=== PATIENT | female | born 1985 | race Caucasian/White ===

== ENCOUNTER 2020-01-02 18:28 | Day surgery (SDC) | payer BC ==
[2020-01-02 18:39] VITALS: PULSE 127
--- NOTE | 2020-01-02 19:06 | EDM.PDOC ---
ED HPI GENERAL MEDICAL PROBLEM - General Chief Complaint: Abdominal Pain Stated Complaint: ABDOMINAL PAIN Time Seen by Provider: 01/02/20 18:39 Source of Information: Reports: Patient, RN Notes Reviewed History Limitations: Reports: No Limitations - History of Present Illness INITIAL COMMENTS - FREE TEXT/NARRATIVE: Patient is a 34-year-old female who presents to the ED for the evaluation of her abdominal pain. Patient notes that since December 29, 2019, she has had some on and off right lower quadrant pain. She states that the pain is worse by movement, and with direct palpation of the right lower quadrant. She states that if she stands still or sits still this seems to decrease the pain. She states she is having trouble sleeping at night because she is having some issues finding comfortable positions. She states she will have to struggle to get into 1 position that is comfortable, and she will stay there all night. Patient notes she did have a good bowel movement as well today. She states she has had her gallbladder removed but still retains her appendix. She is not complaining of any other sick-like symptoms, nausea/vomiting/diarrhea, fever/ chills, chest pain/cough/shortness of breath. She does note a history of PCOS. She did take some Tylenol today, this did seem to help with the pain a little bit. Patient denies any chance of as she "has not had sex in quite some time". She believes her last menstrual period was around 6 weeks ago. Her primary care provider is Armen Bermudez. - Related Data Allergies Allergy/AdvReac Type Severity Reaction Status Date / Time azithromycin [From Zithromax] Allergy Abdominal Verified 01/09/19 14:33 Pain nickel Allergy Itching Verified 01/09/19 14:33 dust mites Allergy Cough Uncoded 01/09/19 14:33 Home Meds: Home Meds Ibuprofen [Motrin] 600 mg PO Q6H PRN #30 tablet 09/19/15 [Rx] LORazepam 1 tab PO DAILY PRN 06/21/16 [History] metFORMIN HCl [Metformin HCl ER] 1 tab PO DAILY 06/21/16 [History] Methylphenidate HCl [Ritalin] 10 mg PO DAILY 01/02/20 [History] OLANZapine [ZyPREXA] 15 mg PO DAILY 01/02/20 [History] buPROPion [Wellbutrin] 400 mg PO BID 01/02/20 [History] lamoTRIgine [LaMICtal] 200 mg PO DAILY 01/02/20 [History] Past Medical History HEENT History: Reports: Allergic Rhinitis, Sinusitis Other HEENT History: Severe Snoring Respiratory History: Reports: Sleep Apnea BEACH [employer] History: Reports: Polycystic Ovaries, , Spontaneous Psychiatric History: Reports: Anxiety, Bipolar, Depression Other Psychiatric History: under control takes effexor daily - Past Surgical History HEENT Surgical History: Reports: Adenoidectomy, Naso-Sinus Surgery, Oral Surgery GI Surgical History: Reports: Cholecystectomy Social & Family History - Tobacco Use Smoking Status *Q: Never Smoker - Caffeine Use Caffeine Use: Reports: None ED ROS GENERAL - Review of Systems Review Of Systems: Comprehensive ROS is negative, except as noted in HPI. ED EXAM, GI/ABD - Physical Exam Exam: See Below Exam Limited By: No Limitations General Appearance: Alert, WD/WN, No Apparent Distress Eyes: Bilateral: Normal Appearance Throat/Mouth: Normal Inspection, Normal Lips, Normal Teeth, Normal Gums, Normal Oropharynx, Normal Voice, No Airway Compromise Head: Atraumatic, Normocephalic Respiratory/Chest: No Respiratory Distress, Lungs Clear, Normal Breath Sounds, No Accessory Muscle Use, Chest Non-Tender Cardiovascular: Normal Peripheral Pulses, Regular Rate, Rhythm, No Murmur GI/Abdominal Exam: Normal Bowel Sounds, Soft, No Distention, No Mass, Tender ( RLQ, McBurney's point is positive.) (Female) Exam: Deferred Rectal (Female) Exam: Deferred Back Exam: Normal Inspection Extremities: Normal Inspection, Normal Capillary Refill Neurological: Alert, Oriented, Normal Cognition, No Motor/Sensory Deficits Psychiatric: Normal Affect, Normal Mood Skin Exam: Warm, Dry, Intact, Normal Color, No Rash Course - Vital Signs Last Recorded V/S: Last Vital Signs Temp 97.4 F 01/02/20 18:35 Pulse 127 H 01/02/20 18:35 Resp 16 01/02/20 18:35 BP 128/96 H 01/02/20 18:35 Pulse Ox 100 01/02/20 18:35 - Orders/Labs/Meds Orders: Active Orders 24 hr Category Date Time Status Notify Provider Consults [RC] ASDIRECTED Care 01/02/20 21:04 Ordered Peripheral IV Care [RC] . DIRECTED Care 01/02/20 18:58 Ordered Consult to Physician [CONS] Stat Cons 01/02/20 21:03 Ordered Abdomen Pelvis w Cont [CT] Stat Exams 01/02/20 18:57 Ordered Sodium Chloride 0.9% [Saline Flush] Med 01/02/20 18:57 Ordered 10 ml FLUSH ASDIRECTED PRN cefOXitin [Mefoxin in Dextrose,Iso-Osm 2 GM/50 ML] 2 gm Med 01/02/20 21:14 Ordered Premix Bag 1 bag IV ONETIME metroNIDAZOLE/Normal Saline [Flagyl 500 MG in NS 100 ML Med 01/02/20 21:14 Ordered ] 500 mg Premix Bag 1 bag IV ONETIME Peripheral IV Insertion Adult [OM.PC] Stat Oth 01/02/20 18:57 Ordered Medication Orders Cefoxitin Sodium 2 gm/ Premix 50 mls @ 100 mls/hr IV ONETIME ONE Stop: 01/02/20 21:43 Metronidazole 500 mg/ Premix 100 mls @ 100 mls/hr IV ONETIME ONE Stop: 01/02/20 22:13 Sodium Chloride (Saline Flush) 10 ml FLUSH ASDIRECTED PRN PRN Reason: Keep Vein Open Last Admin: 01/02/20 20:43 Dose: 10 ml Admin: 01/02/20 19:25 Dose: 10 ml Labs: Laboratory Tests 01/02/20 01/02/20 Range/Units 19:24 19:24 WBC 12.40 H (3.98-10.04) K/mm3 RBC 4.69 (3.98-5.22) M/mm3 Hgb 13.1 (11.2-15.7) gm/dl Hct 40.4 (34.1-44.9) % MCV 86.1 (79.4-94.8) fl MCH 27.9 (25.6-32.2) pg MCHC 32.4 (32.2-35.5) g/dl RDW Std Deviation 42.9 (36.4-46.3) fL Plt Count 449 H D (182-369) K/mm3 MPV 9.0 L (9.4-12.3) fl Neutrophils % (Manual) 76 H (40-60) % Band Neutrophils % 0 (0-10) % Lymphocytes % (Manual) 20 (20-40) % Atypical Lymphs % 0 % Monocytes % (Manual) 4 (2-10) % Eosinophils % (Manual) 0 L (0.7-5.8) % Basophils % (Manual) 0 L (0.1-1.2) Platelet Estimate Adequate RBC Morph Comment Normal Sodium 144 (136-145) mEq/L Potassium 3.4 L (3.5-5.1) mEq/L Chloride 105 (98-107) mEq/L Carbon Dioxide 26 (21-32) mEq/L Anion Gap 16.4 H (5-15) BUN 13 (7-18) mg/dL Creatinine 1.0 (0.55-1.02) mg/dL Est Cr Clr Drug Dosing 67.80 mL/min Estimated GFR (MDRD) > 60 (>60) mL/min BUN/Creatinine Ratio 13.0 L (14-18) Glucose 113 H (74-106) mg/dL Calcium 9.0 (8.5-10.1) mg/dL Total Bilirubin 0.3 (0.2-1.0) mg/dL AST 21 (15-37) U/L ALT 57 (14-59) U/L Alkaline Phosphatase 94 (46-116) U/L Total Protein 7.6 (6.4-8.2) g/dl Albumin 3.7 (3.4-5.0) g/dl Globulin 3.9 gm/dL Albumin/Globulin Ratio 1.0 (1-2) Meds: Medications Generic Name Dose Route Start Last Admin Trade Name Freq PRN Reason Stop Dose Admin Cefoxitin Sodium 2 gm/ Premix 50 mls @ 100 mls/hr 01/02/20 21:14 IV 01/02/20 21:43 ONETIME ONE Metronidazole 500 mg/ Premix 100 mls @ 100 mls/hr 01/02/20 21:14 IV 01/02/20 22:13 ONETIME ONE Sodium Chloride 10 ml 01/02/20 18:57 01/02/20 20:43 Saline Flush FLUSH 10 ml ASDIRECTED PRN Administration Keep Vein Open Discontinued Medications Generic Name Dose Route Start Last Admin Trade Name Freq PRN Reason Stop Dose Admin Diatrizoate Meglum/Diatrizoate Sod 90 ml 01/02/20 20:40 01/02/20 20:43 Gastrografin 37% PO 01/02/20 20:41 90 ml ONETIME ONE Administration Iopamidol 100 ml 01/02/20 20:40 01/02/20 20:43 Isovue-300 (61%) IVPUSH 01/02/20 20:41 100 ml ONETIME ONE Administration - Re-Assessments/Exams Free Text/Narrative Re-Assessment/Exam: 01/02/20 19:05 Patient presents to the ED for the evaluation of her lower abdominal pain. This very well could be due to her cystic ovary syndrome, but with McBurney point being positive, will go ahead with some labs and an abdomen pelvis CT with IV and oral contrast for further evaluation. Patient requests no opioid pain medications as this interacts with her psychiatric meds. 01/02/20 21:02 Patient's white blood cell count comes back mildly elevated with a slight left shift. Metabolic panel is essentially normal except for a mildly low potassium at 3.4. CT is done, and there was an area of concern on the right lower quadrant that looks like possible fat stranding. Fortunately Dr. Stanley was in the ER consulting on another patient for Dr. Mckeon, and had a chance to look at the CT and she would agree that the patient likely has appendicitis at this time. 01/02/20 21:06 Jamie deleon has read the CT as acute tip appendicitis. Please note that the tip of the appendix is severely distended and is unclear if there is associated underlying fluid collection related to perhaps a small phlegmon. Dr. Stanley did notice also this phlegmon. There is significant periappendiceal fat stranding, and the appendix measures up to 2 cm in its greatest diameter. Departure - Departure Time of Disposition: 21:10 Disposition: DC/Tfer to [facility] Condition: Good Clinical Impression: Appendicitis Qualifiers: Appendicitis type: acute appendicitis Acute appendicitis type: with localized peritonitis Appendicitis gangrene presence: without gangrene Appendicitis perforation presence: without perforation Appendicitis abscess presence: without abscess Qualified Code(s): K35.30 - Acute appendicitis with localized peritonitis, without perforation or gangrene - Discharge Information *PRESCRIPTION DRUG MONITORING PROGRAM REVIEWED*: No *COPY OF PRESCRIPTION DRUG MONITORING REPORT IN PATIENT EVIE: No Referrals: Armen Gonzalez MD [Primary Care Provider] - Forms: ED Department Discharge Sepsis Event Note - Evaluation Sepsis Screening Result: No Definite Risk - Focused Exam Vital Signs: Vital Signs Temp Pulse Resp BP Pulse Ox 01/02/20 18:35 97.4 F 127 H 16 128/96 H 100 Date Exam was Performed: 01/02/20 Time Exam was Performed: 21:15 - My Orders Last 24 Hours: My Active Orders 01/02/20 18:57 Abdomen Pelvis w Cont [CT] Stat Sodium Chloride 0.9% [Saline Flush] 10 ml FLUSH ASDIRECTED PRN Peripheral IV Insertion Adult [OM.PC] Stat 01/02/20 18:58 Peripheral IV Care [RC] . DIRECTED 01/02/20 21:03 Consult to Physician [CONS] Stat 01/02/20 21:04 Notify Provider Consults [RC] ASDIRECTED 01/02/20 21:14 cefOXitin [Mefoxin in Dextrose,Iso-Osm 2 GM/50 ML] 2 gm Premix Bag 1 bag IV ONETIME metroNIDAZOLE/Normal Saline [Flagyl 500 MG in NS 100 ML] 500 mg Premix Bag 1 bag IV ONETIME - Assessment/Plan Last 24 Hours: My Active Orders 01/02/20 18:57 Abdomen Pelvis w Cont [CT] Stat Sodium Chloride 0.9% [Saline Flush] 10 ml FLUSH ASDIRECTED PRN Peripheral IV Insertion Adult [OM.PC] Stat 01/02/20 18:58 Peripheral IV Care [RC] . DIRECTED 01/02/20 21:03 Consult to Physician [CONS] Stat 01/02/20 21:04 Notify Provider Consults [RC] ASDIRECTED 01/02/20 21:14 cefOXitin [Mefoxin in Dextrose,Iso-Osm 2 GM/50 ML] 2 gm Premix Bag 1 bag IV ONETIME metroNIDAZOLE/Normal Saline [Flagyl 500 MG in NS 100 ML] 500 mg Premix Bag 1 bag IV ONETIME
[2020-01-02] MEDS: Sodium Chloride 0.9% 10 ML Syringe FLUSH PRN ×2 (19:25→20:43)
[2020-01-02] MEDS ORDERED: Iopamidol 612 MG/ML 100 ML Bottle IVPUSH ONE (20:40)
[2020-01-02] MEDS ORDERED: Diatrizoate Meglumine/Diatrizoate Sodium 37% 120 ML Bottle PO ONE (20:40)
[2020-01-02] MEDS ORDERED: metroNIDAZOLE/Normal Saline 500 MG in Premix Bag 1 BAG IV ONE (21:14)
[2020-01-02] MEDS ORDERED: cefOXitin 2 GM in Premix Bag 1 BAG IV ONE (21:14)
--- NOTE | 2020-01-02 21:43 | PCM.HP.2 ---
H&P History of Present Illness - General Date of Service: 01/02/20 Admit Problem/Dx: Admission Diagnosis/Problem Admission Diagnosis/Problem Appendicitis Source of Information: Patient, Provider History Limitations: Reports: No Limitations - History of Present Illness Initial Comments - Free Text/Narative: Pt is a 34 y/o lady who presents with a 4 day history of RLQ abdominal pain. The pain has worsened somewhat over the last 4 days, and has persisted, so the patient presented for evaluation. She denies any stool changes. No hematochezia or melena. No n/v. Normal appetite - Related Data Allergies/Adverse Reactions: Allergies Allergy/AdvReac Type Severity Reaction Status Date / Time azithromycin [From Zithromax] Allergy Abdominal Verified 01/09/19 14:33 Pain nickel Allergy Itching Verified 01/09/19 14:33 dust mites Allergy Cough Uncoded 01/09/19 14:33 Home Medications: Home Meds Ibuprofen [Motrin] 600 mg PO Q6H PRN #30 tablet 09/19/15 [Rx] LORazepam 1 tab PO DAILY PRN 06/21/16 [History] metFORMIN HCl [Metformin HCl ER] 1 tab PO DAILY 06/21/16 [History] Methylphenidate HCl [Ritalin] 10 mg PO DAILY 01/02/20 [History] OLANZapine [ZyPREXA] 15 mg PO DAILY 01/02/20 [History] buPROPion [Wellbutrin] 400 mg PO BID 01/02/20 [History] lamoTRIgine [LaMICtal] 200 mg PO DAILY 01/02/20 [History] Past Medical History HEENT History: Reports: Allergic Rhinitis, Sinusitis Other HEENT History: Severe Snoring Respiratory History: Reports: Sleep Apnea 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: Reports: Polycystic Ovaries, , Spontaneous Other Neuro History: Had Headache Psychiatric History: Reports: Anxiety, Bipolar, Depression Other Psychiatric History: under control takes effexor daily Endocrine/Metabolic History: Reports: Other (See Below) Other Endocrine/Metabolic History: PCOS - Past Surgical History HEENT Surgical History: Reports: Adenoidectomy, Naso-Sinus Surgery, Oral Surgery GI Surgical History: Reports: Cholecystectomy Social & Family History - Family History Cardiac: Reports: High Cholesterol, Hypertension Respiratory: Reports: Sleep Apnea Psychiatric: Reports: Depression - Tobacco Use Smoking Status *Q: Never Smoker - Caffeine Use Caffeine Use: Reports: None H&P Review of Systems - Review of Systems: Review Of Systems: See Below General: Reports: No Symptoms HEENT: Reports: No Symptoms Pulmonary: Reports: No Symptoms Cardiovascular: Reports: No Symptoms Gastrointestinal: Reports: Abdominal Pain. Denies: Constipation, Diarrhea Genitourinary: Reports: No Symptoms Musculoskeletal: Reports: No Symptoms Skin: Reports: No Symptoms Neurological: Reports: No Symptoms Hematologic/Lymphatic: Reports: No Symptoms Exam - Exam Exam: See Below - Vital Signs Vital Signs: Last Vital Signs Temp 36.3 C 01/02/20 18:35 Pulse 127 H 01/02/20 18:35 Resp 16 01/02/20 18:35 BP 128/96 H 01/02/20 18:35 Pulse Ox 100 01/02/20 18:35 Weight: 99.79 kg - Exam Quality Assessment: No: Supplemental Oxygen General: Alert, Oriented HEENT: Conjunctiva Clear, EOMI Neck: Supple Lungs: Normal Respiratory Effort Cardiovascular: Regular Rate, Regular Rhythm GI/Abdominal Exam: Soft, Guarding (in RLQ), Rebound (in RLQ), Tender (in RLQ) Peripheral Pulses: 2+: Dorsalis Pedis (L), Dorsalis Pedis (R) Skin: Warm, Dry, Intact Neurological: Cranial Nerves Intact Neuro Extensive - Mental Status: Alert, Oriented x3, Normal Mood/Affect - Patient Data Lab Results Last 24 hrs: Laboratory Results - last 24 hr 01/02/20 01/02/20 Range/Units 19:24 19:24 WBC 12.40 H (3.98-10.04) K/mm3 RBC 4.69 (3.98-5.22) M/mm3 Hgb 13.1 (11.2-15.7) gm/dl Hct 40.4 (34.1-44.9) % MCV 86.1 (79.4-94.8) fl MCH 27.9 (25.6-32.2) pg MCHC 32.4 (32.2-35.5) g/dl RDW Std Deviation 42.9 (36.4-46.3) fL Plt Count 449 H D (182-369) K/mm3 MPV 9.0 L (9.4-12.3) fl Neutrophils % (Manual) 76 H (40-60) % Band Neutrophils % 0 (0-10) % Lymphocytes % (Manual) 20 (20-40) % Atypical Lymphs % 0 % Monocytes % (Manual) 4 (2-10) % Eosinophils % (Manual) 0 L (0.7-5.8) % Basophils % (Manual) 0 L (0.1-1.2) Platelet Estimate Adequate RBC Morph Comment Normal Sodium 144 (136-145) mEq/L Potassium 3.4 L (3.5-5.1) mEq/L Chloride 105 (98-107) mEq/L Carbon Dioxide 26 (21-32) mEq/L Anion Gap 16.4 H (5-15) BUN 13 (7-18) mg/dL Creatinine 1.0 (0.55-1.02) mg/dL Est Cr Clr Drug Dosing 67.80 mL/min Estimated GFR (MDRD) > 60 (>60) mL/min BUN/Creatinine Ratio 13.0 L (14-18) Glucose 113 H (74-106) mg/dL Calcium 9.0 (8.5-10.1) mg/dL Total Bilirubin 0.3 (0.2-1.0) mg/dL AST 21 (15-37) U/L ALT 57 (14-59) U/L Alkaline Phosphatase 94 (46-116) U/L Total Protein 7.6 (6.4-8.2) g/dl Albumin 3.7 (3.4-5.0) g/dl Globulin 3.9 gm/dL Albumin/Globulin Ratio 1.0 (1-2) Result Diagrams: 01/02/20 19:24 01/02/20 19:24 Sepsis Event Note - Evaluation Sepsis Screening Result: No Definite Risk - Focused Exam Vital Signs: Vital Signs Temp Pulse Resp BP Pulse Ox 01/02/20 18:35 36.3 C 127 H 16 128/96 H 100 Date Exam was Performed: 01/03/20 Time Exam was Performed: 00:01 *Q Meaningful Use (ADM) - VTE Risk Assess *Q Each Risk Factor Represents 1 Point: Minor Surgery Planned, Obesity ( BMI > 25 kg/m2) Total Score 1 Point Risk Factors: 2 - Problem List (1) Appendicitis SNOMED Code(s): 42176973 ICD Code: K37 - UNSPECIFIED APPENDICITIS Status: Acute Current Visit: Yes Qualifiers: Appendicitis type: acute appendicitis Acute appendicitis type: with localized peritonitis Appendicitis gangrene presence: without gangrene Appendicitis perforation presence: without perforation Appendicitis abscess presence: without abscess Qualified Code(s): K35.30 - Acute appendicitis with localized peritonitis, without perforation or gangrene Problem List Initiated/Reviewed/Updated: Yes Orders Last 24hrs: Active Orders 24 hr Category Date Time Status Admission Status [Patient Status] [ADT] Routine ADT 01/02/20 21:29 Active Notify Provider Consults [RC] ASDIRECTED Care 01/02/20 21:04 Active Peripheral IV Care [RC] . DIRECTED Care 01/02/20 18:58 Active Consult to Physician [CONS] Stat Cons 01/02/20 21:03 Active Abdomen Pelvis w Cont [CT] Stat Exams 01/02/20 18:57 Taken Cefuroxime [Zinacef] 1.5 gm Med 01/02/20 21:25 Active Sodium Chloride 0.9% [Normal Saline] 50 ml IV ONETIME Sodium Chloride 0.9% [Saline Flush] Med 01/02/20 18:57 Active 10 ml FLUSH ASDIRECTED PRN metroNIDAZOLE/Normal Saline [Flagyl 500 MG in NS 100 ML Med 01/02/20 21:14 Active ] 500 mg Premix Bag 1 bag IV ONETIME Peripheral IV Insertion Adult [OM.PC] Stat Oth 01/02/20 18:57 Ordered Schedule Procedure [COMM] Stat Oth 01/02/20 21:31 Ordered Medication Orders Metronidazole 500 mg/ Premix 100 mls @ 100 mls/hr IV ONETIME ONE Stop: 01/02/20 22:13 Last Admin: 01/02/20 21:29 Dose: 100 mls/hr Cefuroxime Sodium 1.5 gm/ (Sodium Chloride) 50 mls @ 100 mls/hr IV ONETIME ONE Stop: 01/02/20 21:54 Sodium Chloride (Saline Flush) 10 ml FLUSH ASDIRECTED PRN PRN Reason: Keep Vein Open Last Admin: 01/02/20 20:43 Dose: 10 ml Admin: 01/02/20 19:25 Dose: 10 ml Assessment/Plan Comment:: 34 y/o lady with acute appendicitis - plan for laparoscopic appendectomy, possible open - discussed risks of infection and bleeding, as well as staple line failure. Her written consent was obtained - NPO with IVF - IV cefuroxime 1.5g and metronidazole 500mg - will assess need for inpatient stay based on intraoperative findings Jesusita Addom-Anabel, MD General surgery - Mortality Measure Prognosis:: Good
[2020-01-02] MEDS ORDERED: Succinylcholine/Sod PF 100 MG/5 ML SYRINGE IV ONE (21:47)
[2020-01-02] MEDS ORDERED: Lactated Ringers 1,000 ML ONE ×2 (21:47→23:47)
[2020-01-02] MEDS ORDERED: Midazolam 1 MG/ML 2 ML SDV ONE (21:47)
[2020-01-02] MEDS ORDERED: Ondansetron 4 MG/2 ML SDV ONE (21:47)
[2020-01-02] MEDS ORDERED: Rocuronium 50 MG/5 ML Vial ONE (21:47)
[2020-01-02] MEDS ORDERED: Propofol 200 MG/20 ML SDV ONE ×2 (21:47→23:23)
[2020-01-02] MEDS ORDERED: fentaNYL 250 MCG/5 ML SDV ONE (21:47)
[2020-01-02] MEDS ORDERED: Lidocaine 1% 4 ML ONE (21:47)
[2020-01-02] MEDS ORDERED: Ketorolac 30 MG/ML SDV ONE (21:48)
[2020-01-02] MEDS ORDERED: Dexamethasone 4 MG/ML 5 ML MDV ONE (21:48)
[2020-01-02] MEDS ORDERED: Famotidine 20 MG/2 ML SDV IVPUSH ONE (22:36)
[2020-01-02] MEDS ORDERED: cefTRIAXone 2 GM AdvVial IV ONE (22:43)
[2020-01-02] MEDS ORDERED: Sodium Chloride 0.9% 100 ML ONE (22:44)
[2020-01-02] MEDS: Bupivacaine 0.5%/EPINEPHrine 1:200,000 50 ML MDV ONE ×2 (23:15→23:31)
[2020-01-02] MEDS: Lidocaine 1% with EPINEPHrine 1:100,000 20 ML MDV ONE ×2 (23:15→23:30)
[2020-01-02] MEDS ORDERED: HYDROmorphone 0.5 MG/0.5 ML Syringe IVPUSH PRN (23:31)
[2020-01-02] MEDS ORDERED: Ondansetron 4 MG/2 ML SDV IVPUSH PRN (23:31)
[2020-01-02] MEDS ORDERED: fentaNYL 100 MCG/2 ML SDV IVPUSH PRN (23:31)
--- NOTE | 2020-01-02 23:31 | PCM.PREANE ---
Preanesthetic Assessment - Procedure Proposed Procedure: Laparoscopic Appendectomy - Anesthesia/Transfusion/Family Hx Anesthesia History: Prior Anesthesia Without Reaction Family History of Anesthesia Reaction: No - Review of Systems General: No Symptoms Pulmonary: Other (CA with CPAP) Cardiovascular: No Symptoms Gastrointestinal: Abdominal Pain, Other (GERD) Neurological: No Symptoms Other: Reports: Depression, Anxiety (Bipolar disorder) - Physical Assessment NPO Status Date: 01/02/20 NPO Status Time: 18:00 Vital Signs: Last Vital Signs Temp 36.3 C 01/02/20 18:35 Pulse 127 H 01/02/20 18:35 Resp 16 01/02/20 18:35 BP 128/96 H 01/02/20 18:35 Pulse Ox 100 01/02/20 18:35 Height: 1.63 m Weight: 99.79 kg ASA Class: 2E Mental Status: Alert & Oriented x3 Airway Class: Mallampati = 2 Dentition: Reports: Normal Dentition Thyro-Mental Finger Breadths: 2 Mouth Opening Finger Breadths: 3 ROM/Head Extension: Full Lungs: Clear to Auscultation, Normal Respiratory Effort Cardiovascular: Regular Rate, Regular Rhythm - Lab Values: Laboratory Last Values WBC 12.40 K/mm3 (3.98-10.04) H 01/02/20 19:24 RBC 4.69 M/mm3 (3.98-5.22) 01/02/20 19:24 Hgb 13.1 gm/dl (11.2-15.7) 01/02/20 19:24 Hct 40.4 % (34.1-44.9) 01/02/20 19:24 MCV 86.1 fl (79.4-94.8) 01/02/20 19:24 MCH 27.9 pg (25.6-32.2) 01/02/20 19:24 MCHC 32.4 g/dl (32.2-35.5) 01/02/20 19:24 RDW Std Deviation 42.9 fL (36.4-46.3) 01/02/20 19:24 Plt Count 449 K/mm3 (182-369) H D 01/02/20 19:24 MPV 9.0 fl (9.4-12.3) L 01/02/20 19:24 Neutrophils % (Manual) 76 % (40-60) H 01/02/20 19:24 Band Neutrophils % 0 % (0-10) 01/02/20 19:24 Lymphocytes % (Manual) 20 % (20-40) 01/02/20 19:24 Atypical Lymphs % 0 % 01/02/20 19:24 Monocytes % (Manual) 4 % (2-10) 01/02/20 19:24 Eosinophils % (Manual) 0 % (0.7-5.8) L 01/02/20 19:24 Basophils % (Manual) 0 (0.1-1.2) L 01/02/20 19:24 Platelet Estimate Adequate 01/02/20 19:24 RBC Morph Comment Normal 01/02/20 19:24 Sodium 144 mEq/L (136-145) 01/02/20 19:24 Potassium 3.4 mEq/L (3.5-5.1) L 01/02/20 19:24 Chloride 105 mEq/L (98-107) 01/02/20 19:24 Carbon Dioxide 26 mEq/L (21-32) 01/02/20 19:24 Anion Gap 16.4 (5-15) H 01/02/20 19:24 BUN 13 mg/dL (7-18) 01/02/20 19:24 Creatinine 1.0 mg/dL (0.55-1.02) 01/02/20 19:24 Est Cr Clr Drug Dosing 67.80 mL/min 01/02/20 19:24 Estimated GFR (MDRD) > 60 mL/min (>60) 01/02/20 19:24 BUN/Creatinine Ratio 13.0 (14-18) L 01/02/20 19:24 Glucose 113 mg/dL (74-106) H 01/02/20 19:24 Calcium 9.0 mg/dL (8.5-10.1) 01/02/20 19:24 Total Bilirubin 0.3 mg/dL (0.2-1.0) 01/02/20 19:24 AST 21 U/L (15-37) 01/02/20 19:24 ALT 57 U/L (14-59) 01/02/20 19:24 Alkaline Phosphatase 94 U/L (46-116) 01/02/20 19:24 Total Protein 7.6 g/dl (6.4-8.2) 01/02/20 19:24 Albumin 3.7 g/dl (3.4-5.0) 01/02/20 19:24 Globulin 3.9 gm/dL 01/02/20 19:24 Albumin/Globulin Ratio 1.0 (1-2) 01/02/20 19:24 Urine HCG, Qual Negative (NEGATIVE) 01/02/20 22:05 - Allergies Allergies/Adverse Reactions: Allergies Allergy/AdvReac Type Severity Reaction Status Date / Time azithromycin [From Zithromax] Allergy Abdominal Verified 01/09/19 14:33 Pain nickel Allergy Itching Verified 01/09/19 14:33 dust mites Allergy Cough Uncoded 01/09/19 14:33 - Acknowledgements Anesthesia Type Planned: General Anesthesia Pt an Appropriate Candidate for the Planned Anesthesia: Yes Alternatives and Risks of Anesthesia Discussed w Pt/Guardian: Yes Pt/Guardian Understands and Agrees with Anesthesia Plan: Yes PreAnesthesia Questionnaire HEENT History: Reports: Allergic Rhinitis, Sinusitis Other HEENT History: Severe Snoring Respiratory History: Reports: Sleep Apnea 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: Reports: Polycystic Ovaries, , Spontaneous Other Neuro History: Had Headache Psychiatric History: Reports: Anxiety, Bipolar, Depression Other Psychiatric History: under control takes effexor daily Endocrine/Metabolic History: Reports: Other (See Below) Other Endocrine/Metabolic History: PCOS - Past Surgical History HEENT Surgical History: Reports: Adenoidectomy, Naso-Sinus Surgery, Oral Surgery GI Surgical History: Reports: Cholecystectomy - SUBSTANCE USE Smoking Status *Q: Never Smoker - HOME MEDS Home Medications: Home Meds Ibuprofen [Motrin] 600 mg PO Q6H PRN #30 tablet 09/19/15 [Rx] LORazepam 1 tab PO DAILY PRN 06/21/16 [History] metFORMIN HCl [Metformin HCl ER] 1 tab PO DAILY 06/21/16 [History] Methylphenidate HCl [Ritalin] 10 mg PO DAILY 01/02/20 [History] OLANZapine [ZyPREXA] 15 mg PO DAILY 01/02/20 [History] buPROPion [Wellbutrin] 400 mg PO BID 01/02/20 [History] lamoTRIgine [LaMICtal] 200 mg PO DAILY 01/02/20 [History] - CURRENT (IN HOUSE) MEDS Current Meds: Current Medications Sodium Chloride (Saline Flush) 10 ml FLUSH ASDIRECTED PRN PRN Reason: Keep Vein Open Last Admin: 01/02/20 20:43 Dose: 10 ml Discontinued Medications Bupivacaine HCl/Epinephrine Bitart (Marcaine 0.5%/Epinephrine 1:200,000) Confirm Administered Dose 50 ml .ROUTE .STK-MED ONE Stop: 01/02/20 21:49 Ceftriaxone Sodium (Rocephin) Confirm Administered Dose 2 gm IV .STK-MED ONE Stop: 01/02/20 22:44 Dexamethasone (Dexamethasone) Confirm Administered Dose 20 mg .ROUTE .STK-MED ONE Stop: 01/02/20 21:49 Diatrizoate Meglum/Diatrizoate Sod (Gastrografin 37%) 90 ml PO ONETIME ONE Stop: 01/02/20 20:41 Last Admin: 01/02/20 20:43 Dose: 90 ml Famotidine (Pepcid) 20 mg IVPUSH ONETIME ONE Stop: 01/02/20 22:37 Fentanyl (Sublimaze) Confirm Administered Dose 250 mcg .ROUTE .STK-MED ONE Stop: 01/02/20 21:48 Cefoxitin Sodium 2 gm/ Premix 50 mls @ 100 mls/hr IV ONETIME ONE Stop: 01/02/20 21:43 Metronidazole 500 mg/ Premix 100 mls @ 100 mls/hr IV ONETIME ONE Stop: 01/02/20 22:13 Last Admin: 01/02/20 21:29 Dose: 100 mls/hr Cefuroxime Sodium 1.5 gm/ (Sodium Chloride) 50 mls @ 100 mls/hr IV ONETIME ONE Stop: 01/02/20 21:54 Lidocaine HCl (Xylocaine-Mpf 1%) Confirm Administered Dose 4 mls @ as directed .ROUTE .STK-MED ONE Stop: 01/02/20 21:48 Lactated Ringer's (Ringers, Lactated) Confirm Administered Dose 1,000 mls @ as directed .ROUTE .STK-MED ONE Stop: 01/02/20 21:48 Sodium Chloride (Normal Saline) Confirm Administered Dose 100 mls @ as directed .ROUTE .STK-MED ONE Stop: 01/02/20 22:45 Iopamidol (Isovue-300 (61%)) 100 ml IVPUSH ONETIME ONE Stop: 01/02/20 20:41 Last Admin: 01/02/20 20:43 Dose: 100 ml Ketorolac Tromethamine (Toradol) Confirm Administered Dose 30 mg .ROUTE .STK- MED ONE Stop: 01/02/20 21:49 Lidocaine/Epinephrine (Xylocaine 1% With Epinephrine 1:100,000) Confirm Administered Dose 40 ml .ROUTE .STK-MED ONE Stop: 01/02/20 21:49 Midazolam HCl (Versed 1 Mg/Ml) Confirm Administered Dose 2 mg .ROUTE .STK-MED ONE Stop: 01/02/20 21:48 Ondansetron HCl (Zofran) Confirm Administered Dose 4 mg .ROUTE .STK-MED ONE Stop: 01/02/20 21:48 Propofol (Diprivan 20 Ml) Confirm Administered Dose 400 mg .ROUTE .STK-MED ONE Stop: 01/02/20 21:48 Propofol (Diprivan 20 Ml) Confirm Administered Dose 200 mg .ROUTE .STK-MED ONE Stop: 01/02/20 23:24 Rocuronium [place] (Zemuron) Confirm Administered Dose 50 mg .ROUTE .STK-MED ONE Stop: 01/02/20 21:48
--- NOTE | 2020-01-03 00:07 | PCM.OPNOTE ---
- General Post-Op/Procedure Note Date of Surgery/Procedure: 01/03/20 Operative Procedure(s): laparoscopic appendectomy Findings: Appendicitis with localized abscess Pre Op Diagnosis: Acute appendicitis Post-Op Diagnosis: Same Anesthesia Technique: General ET Tube Primary Surgeon: Jesusita Harris Anesthesia Provider: Darline Pineda Pathology: appendix Fluid Replacement, Intraop: 1,000 Output, Urine Amount: 0 EBL in mLs: 10 Complications: None apparent Condition: Good
--- NOTE | 2020-01-03 00:13 | PCM.PRNOTE ---
- Free Text/Narrative Note: Operative Report Date of surgery: January 02, 2020 Preoperative diagnosis: acute appendicitis. Postoperative diagnosis: same Procedure performed: laparoscopic appendectomy Surgeon: Dr. Jesusita Harris Anesthesia: General [place] Judge: Jovani Santiago CRNA Estimated blood loss: 10 mL IV fluids: 1000 mL Urine output: 0 mL, patient voided prior to OR Drains and lines: None Findings: Appendicitis with localized abscess Pathology: Appendix Indications for procedure: The patient is a 34-year-old lady who presented to the emergency department with a 4-day history of right lower quadrant abdominal pain. She underwent evaluation and had an elevated white blood cell count as well as CT findings consistent with appendicitis. She was consented for laparoscopic appendectomy. We discussed risks of bleeding, infection and staple line failure. A written consent was obtained. Description of procedure: The patient was taken back to the operating room and placed in supine position on the operating table. SCD boots were in place and functional prior to the start of the procedure. Preoperative antibiotics were administered : Ceftriaxone 2 g IV and metronidazole 500 mg IV. The patient had successful induction of general anesthesia and was intubated without difficulty. Pt was then prepped and draped in standard surgical fashion and a timeout was performed. We began by making a 15 mm incision in the infraumbilical skin and deepened down to level of the fascia which was then grasped and incised sharply. We entered the peritoneum and then placed stay sutures of 0 Vicryl on the fascial edges. A 12 mm Lyons port was then placed into the umbilicus and the balloon was inflated. The abdomen was insufflated to 15 mmHg a 5 mm camera was inserted. There was no evidence of any injury created from entry into the abdomen. A TA P block was performed using mixed 1% lidocaine with epinephrine and 0.5% bupivacaine with epinephrine . We then proceeded to place a 5 mm port under direct visualization in the suprapubic midline and an additional 5mm port in the left lower quadrant. The patient was then positioned in Trendelenburg with right side elevated and we proceeded to mobilize the appendix. The appendix was adherent to the cecum and inflamed. The appendix was then grasped and with blunt dissection was brought into the surgical field. The dissection of the tip of the appendix away from the cecum opened the small contained abscess. A Ray-Robert was inserted into the abdomen to warehouse picker the spilled purulence and blood. The mesoappendix dissected from the appendix. The appendix was then taken with a tissue staple load. The mesoappendix was then taken with a vascular staple load. The specimen was in place in the Endo Catch bag. We then inspected and blotted up any blood in the area. The Endo Catch bag and Ray-Robert were then removed from the abdomen. There was no active bleeding at the end of this case. The abdomen was then desufflated and the umbilical fascia closed with 0 Vicryl sutures and the stay sutures were tied, effectively closing the umbilical port site. The skin was then reapproximated at all port sites using a 4-0 Monocryl subcutaneous stitch and covered with Dermabond surgical glue. The patient tolerated the procedure. She was extubated and transported to the PACU in stable condition. All sponge and needle counts were correct. I was present and scrubbed for the entirety of the procedure. Jesusita Harris MD General Surgery
--- NOTE | 2020-01-03 00:30 | PCM.POSTAN ---
POST ANESTHESIA ASSESSMENT - MENTAL STATUS Mental Status: Other (Drowsy) - VITAL SIGNS Vital Signs: Last Vital Signs Temp 36.3 C 01/02/20 18:35 Pulse 127 H 01/02/20 18:35 Resp 16 01/02/20 18:35 BP 128/96 H 01/02/20 18:35 Pulse Ox 100 01/02/20 18:35 97.3 155/102 113 28 98% - RESPIRATORY Respiratory Status: Respiratory Rate WNL, Airway Patent, O2 Saturation Stable, Supplemental Oxygen - CARDIOVASCULAR CV Status: Elevated Pulse Rate, Elevated Blood Pressure - GASTROINTESTINAL GI Status: No Symptoms - PAIN Pain Score: 0 - POST OP HYDRATION Hydration Status: Adequate & Stable
--- NOTE | 2020-01-03 01:00 | PCM48HPAN ---
Post Anesthesia Note - EVALUATION WITHIN 48HRS OF ANESTHETIC Vital Signs in Normal Range: Yes Patient Participated in Evaluation: Yes Respiratory Function Stable: Yes Airway Patent: Yes Cardiovascular Function Stable: Yes Hydration Status Stable: Yes Pain Control Satisfactory: Yes Nausea and Vomiting Control Satisfactory: Yes Mental Status Recovered: Yes Vital Signs: Last Vital Signs Temp 36.3 C 01/03/20 00:21 Pulse 127 H 01/02/20 18:35 Resp 22 H 01/03/20 00:45 BP 152/96 H 01/03/20 00:45 Pulse Ox 97 01/03/20 00:52
[2020-01-03 01:36] VITALS: BP 146/95
--- NOTE | 2020-01-03 10:11 | CT ---
CT abdomen and pelvis Technique: Multiple axial sections were obtained from above the dome of the diaphragm inferiorly through the pubic symphysis. Intravenous and oral contrast was utilized. Delayed images were obtained through the bladder. Comparison: Prior CT abdomen and pelvis exam of 06/21/16. Findings: Visualized lung bases show nothing acute. Slight fatty infiltrations is seen within the liver. No focal abnormality is appreciated within the liver. Surgical clips are noted from prior cholecystectomy. Spleen appears within normal limits. Adrenal glands show no nodule. Kidneys show symmetric contrast enhancement. Small low density finding is noted within the mid right kidney measuring about 8 mm most likely representing a small cyst. This is felt to be present on previous exam. No additional abnormalities are identified within the kidneys. Pancreas appears within normal limits. Aorta shows no aneurysm. No retroperitoneal adenopathy is appreciated. Inflammatory changes seen surrounding the appendix. Small low density finding noted within the right lower quadrant measuring 2.1 cm. This is either due to a dilated distal end of the appendix or could represent a small periappendiceal abscess. No additional pelvic abnormality is appreciated. No free fluid is seen. Delayed images shows contrast within the bladder. Bone window settings were reviewed which show no acute osseous finding. Very minimal fat-containing umbilical hernia is noted. Impression: 1. Findings compatible with appendicitis. 2. Small fluid-filled collection either representing dilated tip of the appendix or small periappendiceal abscess. This finding measures about 2.1 cm. 3. Other findings as noted above believed to be nonacute. Diagnostic code #5 This report was dictated in MDT I agree with preliminary report from [facility], finalized on 01/02/20, 10:06 PM Central Daylight Time
== END 2020-01-03 01:33 | disposition home or self-care (01) ==
LOC: JD.ED 18:28 → JD.SDS 21:31
PROVIDERS: ATTEND Surgery
DX: K35.33 Acute appendicitis with perforation, localized peritonitis, and gangrene, with abscess (principal); F41.9 Anxiety disorder, unspecified; F32.9 Major depressive disorder, single episode, unspecified; Z88.1 Allergy status to other antibiotic agents; Z91.048 Other nonmedicinal substance allergy status; Z79.899 Other long term (current) drug therapy
CPT/HCPCS: 36415; 44970; 74177; 80053; 81025; 85007; 85027; 96374; 99285; J0330; J1100; J1885; J2001; J2250; J2405; J2704; J2710; J3010; J3490; J7120; Q9963; Q9967; 00840

== ENCOUNTER 2020-01-26 17:06 | Emergency (ER) | payer BC ==
[2020-01-26 17:15] VITALS: BP 127/82; PULSE 95
[2020-01-26] MEDS ORDERED: Sodium Chloride 0.9% 10 ML Syringe FLUSH PRN (17:30)
--- NOTE | 2020-01-26 17:38 | EDM.PDOC ---
ED HPI GENERAL MEDICAL PROBLEM - General Chief Complaint: Abdominal Pain Stated Complaint: APPENDECTOMY 3 WEEKS AGO NOW HAVING PAIN Time Seen by Provider: 01/26/20 17:15 Source of Information: Reports: Patient, RN Notes Reviewed History Limitations: Reports: No Limitations - History of Present Illness INITIAL COMMENTS - FREE TEXT/NARRATIVE: Patient is a 34-year-old female who presents to the ED for evaluation of right lower quadrant pain. Patient states that she had an appendectomy performed by Dr. Stanley 3 weeks ago, and everything went well. Patient states that she developed this right lower quadrant abdominal pain this morning, states is been present all day. She states that it feels like a dull deep ache that comes and goes, when she sits down it seems to feel better, when she walks at all it seems to worsen the pain. She states she has not taken any pain medications at home for this. She states that her last bowel movement for her that was normal was yesterday. Patient denies any nausea/vomiting/diarrhea, fever/chills, cough /shortness of breath, chest pain, dysuria/frequency/urgency. Patient denies any chance of history. Patient states that her last menstrual period was around 2 months ago, states that she has PCOS, and that her periods are not regular. Her primary care provider is Armen Bermudez. Right Lower Abdominal Pain Score (Numeric/FACES): 4 - Related Data Allergies Allergy/AdvReac Type Severity Reaction Status Date / Time azithromycin [From Zithromax] Allergy Abdominal Verified 01/26/20 17:15 Pain nickel Allergy Itching Verified 01/26/20 17:15 dust mites Allergy Cough Uncoded 01/09/19 14:33 Home Meds: Home Meds Ibuprofen [Motrin] 600 mg PO Q6H PRN #30 tablet 09/19/15 [Rx] LORazepam 1 tab PO DAILY PRN 06/21/16 [History] metFORMIN HCl [Metformin HCl ER] 1 tab PO DAILY 06/21/16 [History] Methylphenidate HCl [Ritalin] 10 mg PO DAILY 01/02/20 [History] OLANZapine [ZyPREXA] 15 mg PO DAILY 01/02/20 [History] buPROPion [Wellbutrin] 400 mg PO BID 01/02/20 [History] lamoTRIgine [LaMICtal] 200 mg PO DAILY 01/02/20 [History] Past Medical History HEENT History: Reports: Allergic Rhinitis, Sinusitis Other HEENT History: Severe Snoring Respiratory History: Reports: Sleep Apnea 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: Reports: Polycystic Ovaries, , Spontaneous Other Neuro History: Had Headache Psychiatric History: Reports: Anxiety, Bipolar, Depression Other Psychiatric History: under control takes effexor daily Endocrine/Metabolic History: Reports: Obesity/BMI 30+ - Past Surgical History HEENT Surgical History: Reports: Adenoidectomy, Naso-Sinus Surgery, Oral Surgery GI Surgical History: Reports: Cholecystectomy Social & Family History - Family History Family Medical History: Noncontributory Cardiac: Reports: High Cholesterol, Hypertension Respiratory: Reports: Sleep Apnea Psychiatric: Reports: Depression - Tobacco Use Smoking Status *Q: Never Smoker - Caffeine Use Caffeine Use: Reports: None - Recreational Drug Use Recreational Drug Use: No ED ROS GENERAL - Review of Systems Review Of Systems: Comprehensive ROS is negative, except as noted in HPI. ED EXAM, GI/ABD - Physical Exam Exam: See Below Exam Limited By: Intoxication General Appearance: Alert, WD/WN, No Apparent Distress Eyes: Bilateral: Normal Appearance Throat/Mouth: Normal Inspection, Normal Lips, Normal Teeth, Normal Gums, Normal Oropharynx, Normal Voice, No Airway Compromise Head: Atraumatic, Normocephalic Neck: Normal Inspection Respiratory/Chest: No Respiratory Distress, Lungs Clear, Normal Breath Sounds, No Accessory Muscle Use, Chest Non-Tender Cardiovascular: Normal Peripheral Pulses, Regular Rate, Rhythm, No Murmur GI/Abdominal Exam: Normal Bowel Sounds, Soft, No Distention, No Mass, Tender ( RLQ with deep palpation) Extremities: Normal Inspection, Normal Capillary Refill Neurological: Alert, Oriented, Normal Cognition, No Motor/Sensory Deficits Psychiatric: Normal Affect, Normal Mood Skin Exam: Warm, Dry, Intact, Normal Color, No Rash Course - Vital Signs Last Recorded V/S: Last Vital Signs Temp 97.4 F 01/26/20 17:13 Pulse 95 01/26/20 17:13 Resp 16 01/26/20 17:13 BP 127/82 01/26/20 17:13 Pulse Ox 98 01/26/20 17:13 - Orders/Labs/Meds Orders: Active Orders 24 hr Category Date Time Status Peripheral IV Care [RC] . DIRECTED Care 01/26/20 17:30 Ordered Sodium Chloride 0.9% [Saline Flush] Med 01/26/20 17:30 Ordered 10 ml FLUSH ASDIRECTED PRN Peripheral IV Insertion Adult [OM.PC] Stat Oth 01/26/20 17:30 Ordered Medication Orders Sodium Chloride (Saline Flush) 10 ml FLUSH ASDIRECTED PRN PRN Reason: Keep Vein Open Last Admin: 01/26/20 17:34 Dose: 10 ml Labs: Laboratory Tests 01/26/20 01/26/20 Range/Units 17:35 17:35 WBC 8.79 (3.98-10.04) K/mm3 RBC 4.63 (3.98-5.22) M/mm3 Hgb 13.1 (11.2-15.7) gm/dl Hct 40.9 (34.1-44.9) % MCV 88.3 (79.4-94.8) fl MCH 28.3 (25.6-32.2) pg MCHC 32.0 L (32.2-35.5) g/dl RDW Std Deviation 48.0 H (36.4-46.3) fL Plt Count 422 H (182-369) K/mm3 MPV 9.1 L (9.4-12.3) fl Neut % (Auto) 62.2 (34.0-71.1) % Lymph % (Auto) 28.9 (19.3-51.7) % [place] % (Auto) 7.2 (4.7-12.5) % Eos % (Auto) 1.4 (0.7-5.8) Baso % (Auto) 0.2 (0.1-1.2) % Neut # (Auto) 5.47 (1.56-6.13) K/mm3 Lymph # (Auto) 2.54 (1.18-3.74) K/mm3 [place] # (Auto) 0.63 H (0.24-0.36) K/mm3 Eos # (Auto) 0.12 (0.04-0.36) K/mm3 Baso # (Auto) 0.02 (0.01-0.08) K/mm3 Sodium 143 (136-145) mEq/L Potassium 4.0 (3.5-5.1) mEq/L Chloride 104 (98-107) mEq/L Carbon Dioxide 28 (21-32) mEq/L Anion Gap 15.0 (5-15) BUN 11 (7-18) mg/dL Creatinine 1.0 (0.55-1.02) mg/dL Est Cr Clr Drug Dosing 67.80 mL/min Estimated GFR (MDRD) > 60 (>60) mL/min BUN/Creatinine Ratio 11.0 L (14-18) Glucose 85 (74-106) mg/dL Calcium 9.4 (8.5-10.1) mg/dL Total Bilirubin 0.3 (0.2-1.0) mg/dL AST 16 (15-37) U/L ALT 34 (14-59) U/L Alkaline Phosphatase 91 (46-116) U/L Total Protein 7.9 (6.4-8.2) g/dl Albumin 4.2 (3.4-5.0) g/dl Globulin 3.7 gm/dL Albumin/Globulin Ratio 1.1 (1-2) Meds: Medications Generic Name Dose Route Start Last Admin Trade Name Freq PRN Reason Stop Dose Admin Sodium Chloride 10 ml 01/26/20 17:30 01/26/20 17:34 Saline Flush FLUSH 10 ml ASDIRECTED PRN Administration Keep Vein Open - Re-Assessments/Exams Free Text/Narrative Re-Assessment/Exam: 01/26/20 17:38 Patient presents to the ED for evaluation of her right lower quadrant pain. Suspect constipation in nature, however will get some basic labs and abdomen x- ray for evaluation. 01/26/20 18:03 Abdomen x-ray demonstrates quite a bit of stool within the right side of her colon. Pending normal labs; it is likely that her pain could be due to constipation in nature, versus a complication from her PCOS. 01/26/20 18:15 Carlos Eduardo evaluation demonstrates no sign of a bacterial infection or metabolic abnormality. Again likely that this is due to constipation in nature. Patient will be given a bottle of mag citrate and discharged home at this time. We will have her follow-up with Dr. Stanley, if the pain lingers after she has had a good couple bowel movements. Departure - Departure Time of Disposition: 18:16 Disposition: Home, Self-Care 01 Condition: Good Clinical Impression: Constipation Qualifiers: Constipation type: other constipation type Qualified Code(s): K59.09 - Other constipation - Discharge Information *PRESCRIPTION DRUG MONITORING PROGRAM REVIEWED*: No *COPY OF PRESCRIPTION DRUG MONITORING REPORT IN PATIENT EVIE: No Instructions: Preventing Constipation After Surgery Referrals: Armen Gonzalez MD [Primary Care Provider] - Forms: ED Department Discharge Additional Instructions: You were evaluated in the ER today regarding your right lower quadrant abdominal pain. Laboratory evaluation was taken at today's visit, and demonstrates no sign of a bacterial infection or other metabolic derangements. Your x-ray is suggestive of constipation as there is quite a bit of stool in the right side of your colon, exactly where your pain is. You have been given a bottle of magnesium citrate, to take home with you. Please drink one half bottle wait a few hours if you do not have a rather large bowel movement, repeat with the last half bottle. You may try Tylenol/ibuprofen for pain relief, every 6 hours as needed. Recommend you follow-up with Dr. Stanley tomorrow, if the pain is not getting much better after you have had a few good bowel movements. You could also be having some pain from PCOS, if the surgeon deems it not a complication from surgery, recommend you follow-up with ROLL OR TAPE EDGE MACHINE OPERATOR as well for further management. Please return to the ER at any time if symptoms change or worsen. Sepsis Event Note - Evaluation Sepsis Screening Result: No Definite Risk - Focused Exam Vital Signs: Vital Signs Temp Pulse Resp BP Pulse Ox 01/26/20 17:13 97.4 F 95 16 127/82 98 Date Exam was Performed: 01/26/20 Time Exam was Performed: 18:15 - My Orders Last 24 Hours: My Active Orders 01/26/20 17:30 Peripheral IV Care [RC] . DIRECTED Sodium Chloride 0.9% [Saline Flush] 10 ml FLUSH ASDIRECTED PRN Peripheral IV Insertion Adult [OM.PC] Stat - Assessment/Plan Last 24 Hours: My Active Orders 01/26/20 17:30 Peripheral IV Care [RC] . DIRECTED Sodium Chloride 0.9% [Saline Flush] 10 ml FLUSH ASDIRECTED PRN Peripheral IV Insertion Adult [OM.PC] Stat
--- NOTE | 2020-01-26 18:03 | CR ---
Abdomen: Supine view of the abdomen was obtained. Comparison: No previous abdominal x-ray. Surgical clips are seen from prior cholecystectomy. Bowel gas pattern is normal. Several calcifications are noted within the left pelvis which are compatible with phleboliths. No discrete soft tissue abnormality is appreciated. Impression: 1. Nothing acute is appreciated on supine abdominal x-ray. Diagnostic code #2 This report was dictated in MDT
[2020-01-26] MEDS ORDERED: Magnesium Citrate Solution 296 ML Bottle PO ONE (18:16)
== END 2020-01-26 19:00 | disposition home or self-care (01) ==
LOC: JD.ED 17:06
DX: K59.09 Other constipation (principal); Z88.1 Allergy status to other antibiotic agents; Z91.09 Other allergy status, other than to drugs and biological substances; F31.9 Bipolar disorder, unspecified; D41.9 Neoplasm of uncertain behavior of unspecified urinary organ; E66.9 Obesity, unspecified
CPT/HCPCS: 36415; 74018; 80053; 85025; 99284; A9270; 99283

== ENCOUNTER 2022-06-14 15:43 | Emergency (ER) | payer BC ==
[2022-06-14 18:25] LABS: ESTIMATED GFR 66 mL/min (>60)
[2022-06-14] MEDS ORDERED: Sodium Chloride 0.9% 1,000 ML IV ONE (18:37)
[2022-06-14] MEDS ORDERED: Metoclopramide 10 MG/2 ML SDV IVPUSH ONE (18:37)
[2022-06-14] MEDS ORDERED: diphenhydrAMINE 50 MG/ML SDV IVPUSH ONE (18:37)
[2022-06-14] MEDS ORDERED: Ketorolac 30 MG/ML SDV IVPUSH ONE (18:37)
[2022-06-14 21:07] VITALS: BP 139/98; PULSE 87
== END 2022-06-14 21:08 | disposition home or self-care (01) ==
LOC: JD.ED 15:43
DX: R51.9 Headache, unspecified (principal); E66.9 Obesity, unspecified; Z88.0 Allergy status to penicillin; Z88.1 Allergy status to other antibiotic agents; Z91.048 Other nonmedicinal substance allergy status; Z79.899 Other long term (current) drug therapy; Z79.84 Long term (current) use of oral hypoglycemic drugs
CPT/HCPCS: 36415; 70450; 80053; 83735; 85025; 86140; 96361; 96374; 96375; 99284; J1200; J1885; J2765; J7030

== ENCOUNTER 2022-12-28 06:49 | Day surgery (SDC) | payer BC ==
[~2022-12-28 06:49] MED LIST: Lactated Ringers 1,000 ML IV SCH; Lidocaine 1%/Sod Bicarbonate in NS 8.4% 1 ML Syringe IDERM PRN; Sodium Chloride 0.9% 10 ML Syringe FLUSH PRN; Sodium Chloride 0.9% 10 ML Syringe FLUSH SCH
[2022-12-28] MEDS ORDERED: Propofol 200 MG/20 ML SDV ONE ×2 (07:46→08:29)
[2022-12-28] MEDS ORDERED: Lidocaine 1% 2 ML ONE (07:46)
[2022-12-28] MEDS ORDERED: Midazolam 1 MG/ML 2 ML SDV ONE (07:47)
[2022-12-28 09:15] VITALS: BP 118/71; PULSE 85
== END 2022-12-28 09:27 | disposition home or self-care (01) ==
LOC: JD.SDS 06:49
PROVIDERS: ATTEND Family Medicine
DX: K21.00 Gastro-esophageal reflux disease with esophagitis, without bleeding (principal); K29.50 Unspecified chronic gastritis without bleeding; K44.9 Diaphragmatic hernia without obstruction or gangrene; K31.89 Other diseases of stomach and duodenum; F41.9 Anxiety disorder, unspecified; E28.2 Polycystic ovarian syndrome; E66.9 Obesity, unspecified; J30.2 Other seasonal allergic rhinitis; F32.A Depression, unspecified; G47.00 Insomnia, unspecified; Z90.49 Acquired absence of other specified parts of digestive tract; Z90.89 Acquired absence of other organs; Z80.0 Family history of malignant neoplasm of digestive organs; Z83.71 Family history of colonic polyps; Z88.0 Allergy status to penicillin; Z91.048 Other nonmedicinal substance allergy status; Z88.1 Allergy status to other antibiotic agents; Z88.5 Allergy status to narcotic agent; Z79.84 Long term (current) use of oral hypoglycemic drugs; Z79.899 Other long term (current) drug therapy; Z68.39 Body mass index [BMI] 39.0-39.9, adult
CPT/HCPCS: 43239; 81025; J2250; J2704; J7120; 00731; J3490